=== PATIENT | female | born 1965 | race Caucasian/White ===

== ENCOUNTER 2020-04-30 19:27 | Emergency (ER) | payer OTHER, SELFPAY ==
--- NOTE | ~2020-04-30 | XR_ITS ---
EXAMINATION: XR chest 2V EXAM DATE: 04/30/2020 20:01 INDICATION: Nonproductive cough. TECHNIQUE: Frontal and lateral projections of the chest obtained and reviewed. Comparison is made to prior examination from 02/01/2014. FINDINGS: The lungs are clear. There are no pleural effusions. The cardiomediastinal silhouette is within normal limits. There is no pneumothorax suspected. The bones and soft tissues are unremarkab le. IMPRESSION: Unremarkable chest x-ray exam. Reviewed, dictated and finalized at location A.
[2020-04-30 19:49] VITALS: BP 156/96; PULSE 104; RESP 16; TEMP 36; O2SAT 98
--- NOTE | 2020-04-30 20:03 | ED.GENADULT ---
HPI - General Adult General Chief complaint: Upper Respiratory Infection Stated complaint: cough/headache/congestion Time Seen by Provider: 04/30/20 19:50 Source: patient and RN notes reviewed Mode of arrival: ambulatory Limitations: no limitations History of Present Illness HPI narrative: 54-year-old female presents with complains of upper respiratory infection, dry cough, sneezing, facial congestion, facial pressure, and intermittent headache (not the worst of her life) for the past 21 days. Doris reports symptoms increased daily, with increasing shortness of breath, facial pressure, and congestion over the past week. Vanessa-Albuterol inhaler, [place] cold, and Flonase without relief. History of Asthma. Dry cough with chest congestion. Rhinorrhea and nasal congestion. No high fevers, drooling, neck or throat swelling. No chest pain or wheezing. No exacerbation factors. Denies nausea, vomiting, and abdominal pain. Tolerating liquids well. LMP endometrial ablation. Remains active. The patient reports she received a Negative COVID-19 test on 04/29/2020. The patient reports she have not been diagnosed with COVID-19. The patient reports she is not waiting for the results of a COVID-19 lab test. The patient reports she do not have chills, weakness, or fatigue. The patient reports she do not have any sore throat, loss of taste or smell, and diarrhea. Denies recent traveling. Denies concerns for COVID-19 or exposures been home with limited outdoor exposure except for essential household needs, work, and return home. At this time, patient is not suspected of having COVID-19. Some parts of this dictation were generated by voice recognition software and may contain typographical and/or grammatical inaccuracies. Related Data Home Medications Medication Instructions Recorded Confirmed albuterol sulfate [ProAir HFA] 2 puff INHALATION Q4H PRN 04/30/20 04/30/20 nitroglycerin 0.4 mg SUBLINGUAL .PRN 04/30/20 04/30/20 rosuvastatin 20 mg PO DAILY 04/30/20 04/30/20 Allergies Allergy/AdvReac Type Severity Reaction Status Date / Time aspirin Allergy Mild Abdominal Verified 04/30/20 20:04 Pain codeine Allergy Mild Other Verified 04/30/20 20:04 meperidine Allergy Mild Unknown Verified 04/30/20 20:04 Sulfa (Sulfonamide Allergy Mild Unknown Verified 04/30/20 20:04 Antibiotics) influenza virus vaccine, Allergy Unknown Unknown Verified 04/30/20 20:04 specific latex Allergy Unknown Itching Verified 05/20/17 19:59 acetaminophen AdvReac Unknown Abdominal Unverified 04/30/20 20:04 Pain HYDROCODONE BIT Allergy Unknown nausea, Uncoded 05/20/17 19:59 vomiting and headache PROPOXYPHENE NAPSYLATE Allergy Unknown Unknown Uncoded 04/30/20 20:04 Review of Systems Review of Systems: Narrative: CONSTITUTIONAL: Denies fever, chills, sweats. EYES: Denies visual changes, redness, discharge. ENT: Complains of rhinorrhea, congestion, facial pressure, facial congestion. Denies sore throat, otalgia. CARDIOVASCULAR: Denies chest pain, palpitations, edema. RESPIRATORY: Denies wheezing. Complains of intermittent dyspnea, cough. GASTROINTESTINAL: Denies abdominal pain, nausea, vomiting, diarrhea. GENITOURINARY: Denies dysuria, hematuria, abnormal discharge. SKIN: Denies rash or itching. MUSCULOSKELETAL: Denies acute back pain, joint pain, or myalgia. NEUROLOGIC: Denies numbness or focal weakness. Complains of PIPER. PSYCHIATRIC: Denies anxiety or depression. All systems reviewed & are unremarkable except as noted in HPI and below. [facility] Past Medical History Medical History (Updated 05/01/20 @ 00:00 by Tho Mace) Asthma Hypercholesteremia Surgical History Surgical History (Updated 04/30/20 @ 20:07 by MARIO Marshall) History of dilation of urethra History of endometrial ablation Family History Family History (Updated 04/30/20 @ 20:35 by MARIO Marshall) Father , Related to COV
== END 2020-04-30 20:40 | disposition home or self-care (01) ==
PROVIDERS: Emergency Provider Nurse Practitioner Family; PCP Family Medicine
DX: J45.901 Unspecified asthma with (acute) exacerbation (principal); J32.9 Chronic sinusitis, unspecified; E78.00 Pure hypercholesterolemia, unspecified
CPT/HCPCS: 71046; 99213; G0463

== ENCOUNTER 2021-06-10 16:59 | Emergency (ER) | payer OTHER, SELFPAY ==
[2021-06-10 17:06] VITALS: BP 138/83; PULSE 96; RESP 16; TEMP 36.2; O2SAT 99
--- NOTE | 2021-06-10 17:07 | ED.FEMALEGU ---
HPI - Female Genitourinary General Chief complaint: Urogenital-Female Stated complaint: back pain/burning abd pain Time Seen by Provider: 06/10/21 17:09 Source: patient and RN notes reviewed History of Present Illness HPI Narrative: Patient is a 55-year-old female who presents the urgent care with complaints of a possible UTI. Patient states that she has a history of UTIs due to urethral surgery when she was younger. Patient states she is also had a history of kidney stones. Patient denies of any known blood in the urine. States that she has had some mild burning sensation to the lower suprapubic region. Also reports of urinary frequency and urgency. Patient states that she took a home test which let up for a UTI indicating leukocytes . Patient states that she has been taking ibuprofen. Denies of any vomiting or fever. No other acute complaints. As noted. She is aware of the plan of care. Some parts of this dictation were generated by voice recognition software and may contain typographical and/or grammatical inaccuracies. Related Data Home Medications Medication Instructions Recorded Confirmed albuterol sulfate [ProAir HFA] 2 puff INHALATION Q4H PRN 04/30/20 04/30/20 nitroglycerin 0.4 mg SUBLINGUAL .PRN 04/30/20 04/30/20 rosuvastatin 20 mg PO DAILY 04/30/20 04/30/20 Allergies Allergy/AdvReac Type Severity Reaction Status Date / Time aspirin Allergy Mild Abdominal Verified 04/30/20 20:04 Pain codeine Allergy Mild Other Verified 04/30/20 20:04 meperidine Allergy Mild Unknown Verified 04/30/20 20:04 Sulfa (Sulfonamide Allergy Mild Unknown Verified 04/30/20 20:04 Antibiotics) influenza virus vaccine, Allergy Unknown Unknown Verified 04/30/20 20:04 specific latex Allergy Unknown Itching Verified 05/20/17 19:59 acetaminophen AdvReac Unknown Abdominal Unverified 04/30/20 20:04 Pain HYDROCODONE BIT Allergy Unknown nausea, Uncoded 05/20/17 19:59 vomiting and headache PROPOXYPHENE NAPSYLATE Allergy Unknown Unknown Uncoded 04/30/20 20:04 Review of Systems Review of Systems: CONSTITUTIONAL: Denies fever, chills, or sweats. EYES: Denies visual changes, redness, or discharge. ENT: Denies rhinorrhea, congestion, sore throat, or otalgia. CARDIOVASCULAR: Denies chest pain, palpitations, or edema. RESPIRATORY: Denies cough or dyspnea. GASTROINTESTINAL: Denies abdominal pain, nausea, vomiting, or diarrhea. GENITOURINARY: Reports of urinary frequency, urgency SKIN: Denies rash or itching. MUSCULOSKELETAL: Active low back pain NEUROLOGIC: Denies headache, numbness, or weakness. All other systems reviewed are negative, except as documented in HPI. [facility] Past Medical History Medical History (Updated 06/10/21 @ 17:35 by MARIO Barnes) Asthma Hypercholesteremia Surgical History Surgical History (Updated 04/30/20 @ 20:07 by MARIO Marshall) History of dilation of urethra History of endometrial ablation Family History Family History (Updated 04/30/20 @ 20:35 by MARIO Marshall) Father , Related to COVID-19 Cerebrovascular accident Pneumonia Mother Alive and well Social History Social History (Updated 04/30/20 @ 20:36 by MARIO Marshall) Smoking status: Never smoker Tobacco type: cigarettes Second hand tobacco smoke exposure: No Alcohol intake: current Substance use: never Substance use type: does not use Gender identity (if verbalized by the patient): Female Sexual Orientation (if Verbalized by the Patient): Straight or Heterosexual Comments At the time of my signature, I reviewed and agree with the nursing past medical, surgical, social, and family history. There is no relevant family history pertinent to the patient complaint. Exam Narrative: GENERAL: This is a well-nourished, well-developed patient, in no apparent distress. HEAD: normocephalic, atraumatic. EYES: PERRL. Sclera clear/white. Vision is grossly in
== END 2021-06-10 17:42 | disposition home or self-care (01) ==
PROVIDERS: Emergency Provider Nurse Practitioner Family; PCP Family Medicine
DX: R35.0 Frequency of micturition (principal); Z87.442 Personal history of urinary calculi
CPT/HCPCS: 81003; 99213; G0463

== ENCOUNTER 2021-11-09 18:25 | Emergency (ER) | payer OTHER, SELFPAY ==
--- NOTE | 2021-11-09 18:33 | ED.EAR ---
HPI - Ear Problem General Chief complaint: Ear Stated complaint: Left Ear Irritation Time Seen by Provider: 11/09/21 18:34 Source: patient, RN notes reviewed and old records reviewed Mode of arrival: ambulatory Limitations: no limitations History of Present Illness HPI Narrative: 55-year-old female presents to the [facility] with complaints of left ear pressure and pain. Patient states it has started back in August. States she started physical therapy due to vertigo issues. Has seen her primary care for this. States she does take Zyrtec occasionally and using some type of nasal spray. Has also tried Sudafed Related Data Allergies Allergy/AdvReac Type Severity Reaction Status Date / Time aspirin Allergy Mild Abdominal Verified 11/09/21 18:30 Pain codeine Allergy Mild Other Verified 11/09/21 18:30 meperidine Allergy Mild Unknown Verified 11/09/21 18:30 Sulfa (Sulfonamide Allergy Mild Unknown Verified 11/09/21 18:30 Antibiotics) influenza virus vaccine, Allergy Unknown Unknown Verified 11/09/21 18:30 specific latex Allergy Unknown Itching Verified 11/09/21 18:30 acetaminophen AdvReac Unknown Abdominal Verified 11/09/21 18:30 Pain HYDROCODONE BIT Allergy Unknown nausea, Uncoded 11/09/21 18:30 vomiting and headache PROPOXYPHENE NAPSYLATE Allergy Unknown Unknown Uncoded 11/09/21 18:30 Review of Systems Review of Systems: All systems reviewed & are unremarkable except as noted in HPI and below Constitutional: Constitutional: Reports no additional constitutional complaints, Denies chills and Denies fever(s) Eyes: Eyes: Reports no additional eye complaints ENT: Reports as per HPI and Reports otalgia (Left) Cardiovascular: Cardiovascular: Reports no additional cardiovascular complaints Respiratory: Respiratory: Reports no additional respiratory complaints Gastrointestinal: Gastrointestinal: Reports no additional gastrointestinal complaints Musculoskeletal: Musculoskeletal: Reports no additional musculoskeletal complaints Integumentary/Breasts: Skin/Breast: Reports system reviewed and no additional complaints, except as docu Neurologic: Reports system reviewed and no additional complaints, except as documented Psychiatric: Psychiatric: Reports no additional psychiatric complaints Allergic/Immunologic: Allergic/Immunologic: Reports no additional allergic/immunologic complaints PMFSH Past Medical History Medical History (Updated 11/09/21 @ 19:19 by Rosaura Suggs, BERNIEC) Asthma Hypercholesteremia Surgical History Surgical History History of dilation of urethra History of endometrial ablation Family History Family History Father , Related to COVID-19 Cerebrovascular accident Pneumonia Mother Alive and well Social History Social History Smoking status: Never smoker Tobacco type: cigarettes Second hand tobacco smoke exposure: No Alcohol intake: current Substance use: never Substance use type: does not use Gender identity (if verbalized by the patient): Female Sexual Orientation (if Verbalized by the Patient): Straight or Heterosexual Comments At the time of my signature, I reviewed and agree with the nursing past medical, surgical, social, and family history. There is no relevant family history pertinent to the patient complaint. Exam Const: General: healthy appearing, no acute distress, alert and well nourished Nutritional Appearance: well nourished Orientation/consciousness: patient oriented x3 Limitations: no limitations HENMT: Head: normal to inspection Ears: external ears normal, EAC's normal and TM abnormal bulging on the left and wth effusion serous bilateral (left greater then right); not erythematous Face/Nose/Sinus: Normal external nose present and Normal nares present Fac
[2021-11-09 18:34] VITALS: BP 154/96; PULSE 99; RESP 16; TEMP 36.4; O2SAT 100
== END 2021-11-09 18:54 | disposition home or self-care (01) ==
PROVIDERS: Emergency Provider Nurse Practitioner; PCP Physician Assistant
DX: H65.02 Acute serous otitis media, left ear (principal); J45.909 Unspecified asthma, uncomplicated; E78.00 Pure hypercholesterolemia, unspecified
CPT/HCPCS: 99213; G0463

== ENCOUNTER 2022-01-19 16:25 | Emergency (ER) | payer BC, SELFPAY ==
[2022-01-19 16:40] VITALS: BP 121/90; PULSE 95; RESP 12; TEMP 36.2; O2SAT 100
--- NOTE | 2022-01-19 17:25 | ED.URI ---
HPI - URI/Sore Throat General Chief Complaint: Upper Respiratory Infection Stated Complaint: uri Time Seen by Provider: 01/19/22 17:26 Source: patient, RN notes reviewed and old records reviewed Mode of arrival: ambulatory Limitations: no limitations History of Present Illness HPI Narrative: 56-year-old female presents to the [facility] with complaints of an upper respiratory issue. Symptoms started around the 18 of December may be able after. Several days later took a COVID test at home which was positive. Quarantine for several days. States she has had this sinus congestion, postnasal drip, ear discomfort, cough since then and just can not shake it. Has tried multiple [id number] products with no relief. Related Data Allergies Allergy/AdvReac Type Severity Reaction Status Date / Time aspirin Allergy Mild Abdominal Verified 01/19/22 16:38 Pain codeine Allergy Mild Other Verified 01/19/22 16:38 meperidine Allergy Mild Unknown Verified 01/19/22 16:38 Sulfa (Sulfonamide Allergy Mild Unknown Verified 01/19/22 16:38 Antibiotics) influenza virus vaccine, Allergy Unknown Unknown Verified 01/19/22 16:38 specific latex Allergy Unknown Itching Verified 01/19/22 16:38 acetaminophen AdvReac Unknown Abdominal Verified 01/19/22 16:38 Pain HYDROCODONE BIT Allergy Unknown nausea, Uncoded 01/19/22 16:38 vomiting and headache PROPOXYPHENE NAPSYLATE Allergy Unknown Unknown Uncoded 01/19/22 16:38 Review of Systems Review of Systems: All systems reviewed & are unremarkable except as noted in HPI and below Constitutional: Constitutional: Reports no additional constitutional complaints Eyes: Eyes: Reports no additional eye complaints ENT: Reports as per HPI Cardiovascular: Cardiovascular: Reports no additional cardiovascular complaints, Denies chest pain and Denies dyspnea Respiratory: Respiratory: Reports no additional respiratory complaints, Denies chest congestion, Denies cough and Denies dyspnea Gastrointestinal: Gastrointestinal: Reports no additional gastrointestinal complaints, Denies abdominal pain, Denies nausea and Denies vomiting Musculoskeletal: Musculoskeletal: Reports no additional musculoskeletal complaints Integumentary/Breasts: Skin/Breast: Reports system reviewed and no additional complaints, except as docu Neurologic: Reports system reviewed and no additional complaints, except as documented Psychiatric: Psychiatric: Reports no additional psychiatric complaints Allergic/Immunologic: Allergic/Immunologic: Reports no additional allergic/immunologic complaints PMFSH Past Medical History Medical History Asthma Hypercholesteremia Surgical History Surgical History History of dilation of urethra History of endometrial ablation Family History Family History Father , Related to COVID-19 Cerebrovascular accident Pneumonia Mother Alive and well Social History Social History Smoking status: Never smoker Tobacco type: cigarettes Second hand tobacco smoke exposure: No Alcohol intake: current Substance use: never Substance use type: does not use Gender identity (if verbalized by the patient): Female Sexual Orientation (if Verbalized by the Patient): Straight or Heterosexual Comments At the time of my signature, I reviewed and agree with the nursing past medical, surgical, social, and family history. There is no relevant family history pertinent to the patient complaint. Exam Const: General: cooperative, healthy appearing, comfortable, no acute distress, well developed, alert and well nourished Nutritional Appearance: well nourished Orientation/consciousness: patient oriented x3 Limitations: no limitations HENMT: Head: normal
== END 2022-01-19 17:45 | disposition home or self-care (01) ==
PROVIDERS: Emergency Provider Nurse Practitioner; PCP Physician Assistant
DX: J32.9 Chronic sinusitis, unspecified (principal); J40 Bronchitis, not specified as acute or chronic; J45.909 Unspecified asthma, uncomplicated; E78.00 Pure hypercholesterolemia, unspecified
CPT/HCPCS: 99213; G0463

== ENCOUNTER 2022-03-23 15:28 | Emergency (ER) | payer BC, SELFPAY ==
--- NOTE | 2022-03-23 15:35 | ED.URI ---
HPI - URI/Sore Throat General Chief Complaint: Upper Respiratory Infection Stated Complaint: Sinus/Chest Source: patient and RN notes reviewed Mode of arrival: ambulatory Limitations: no limitations History of Present Illness HPI Narrative: 56 y/o female presented for c/o cough, chest congestion and nasal congestion worsening over the last 10 days. States she started feeling worse yesterday. Endorses an episode of left rib pain with deep breath and states she had wheezing last night while laying down. Patient had covid in December. Denies sob, n/v/d/f/c. Denies sick contacts. MD elicited complaint: cough Related Data Allergies Allergy/AdvReac Type Severity Reaction Status Date / Time aspirin Allergy Mild Abdominal Verified 03/23/22 15:39 Pain codeine Allergy Mild Other Verified 03/23/22 15:39 meperidine Allergy Mild Unknown Verified 03/23/22 15:39 Sulfa (Sulfonamide Allergy Mild Unknown Verified 03/23/22 15:39 Antibiotics) influenza virus vaccine, Allergy Unknown Unknown Verified 03/23/22 15:39 specific latex Allergy Unknown Itching Verified 03/23/22 15:39 doxycycline Allergy Headache Verified 03/23/22 15:59 acetaminophen AdvReac Unknown Abdominal Verified 03/23/22 15:39 Pain HYDROCODONE BIT Allergy Unknown nausea, Uncoded 03/23/22 15:39 vomiting and headache PROPOXYPHENE NAPSYLATE Allergy Unknown Unknown Uncoded 03/23/22 15:39 Review of Systems Review of Systems: per hPI [facility] Past Medical History Medical History Asthma Hypercholesteremia Surgical History Surgical History History of dilation of urethra History of endometrial ablation Family History Family History Father , Related to COVID-19 Cerebrovascular accident Pneumonia Mother Alive and well Social History Social History Smoking status: Never smoker Tobacco type: cigarettes Second hand tobacco smoke exposure: No Alcohol intake: current Substance use: never Substance use type: does not use Living arrangements: with family Occupation/Education: occupation Gender identity (if verbalized by the patient): Female Sexual Orientation (if Verbalized by the Patient): Straight or Heterosexual Exam Narrative: GENERAL: Ill-appearing, nontoxic EYES: PERRLA, conjunctivae clear ENT: Mucous membranes moist. TM pearly bowman with dull light reflex bilaterally; no tragal tenderness. Oropharynx erythematous without lesions or exudate NECK: Supple. No lymphadenopathy CHEST: Clear to auscultation, breath sounds equal. No wheezing, rhonchi, rales, or stridor. No respiratory distress, speaks in full sentences. HEART: Regular rate and rhythm. No murmur heard. SKIN: Warm, dry, no rash. LUE congenital abnormality NEURO: Alert and oriented x3. PSYCH: Normal mood and affect Course Course Emergency Course: Patient is aware of diagnosis, understands and agrees to treatment plan. Anticipatory guidance given. Patient agrees to follow-up as directed and is aware of reasons to seek care at the emergency department. Portions of this record may have been created with voice recognition software Level of Care: Express Care Visit Vital Signs Vital signs: reviewed MDM - URI/Sore Throat MDM Narrative Medical decision making narrative: Advised supportive measures and signs/symptoms to go to the ER. Patient refused doxycycline, states she gets a headache. She states she tolerates azithromycin. Pt is appropriate for outpt treatment and f/u. Differential Diagnosis Differential diagnosis: Likely upper respiratory infection, sinusitis, viral infection and bronchitis Discharge Plan Discharge Clinical Impression: Upper respiratory infection Qualifiers: URI type: unspecified URI Qualifie
[2022-03-23 15:38] VITALS: BP 134/92; PULSE 90; RESP 14; TEMP 36.3; O2SAT 100
[2022-03-23 15:40] VITALS: BP 134/92; PULSE 90; RESP 14; TEMP 36.3; O2SAT 100
== END 2022-03-23 15:58 | disposition home or self-care (01) ==
PROVIDERS: Emergency Provider Nurse Practitioner Family; PCP Physician Assistant
DX: J06.9 Acute upper respiratory infection, unspecified (principal); J45.909 Unspecified asthma, uncomplicated; E78.00 Pure hypercholesterolemia, unspecified
CPT/HCPCS: 99213; G0463

== ENCOUNTER 2022-03-30 13:21 | Outpatient (CLI) | payer BC, SELFPAY ==
--- NOTE | ~2022-03-30 | US_ITS ---
EXAMINATION: US pelvic complete w TV DATE: 03/30/2022 14:31 INDICATION: Uterine fibroids. Comparison:Ultrasound dated 10/24/2013 TECHNIQUE: Multiple transabdominal and endovaginal sonographic images of the pelvis performed. FINDINGS: The uterus measures 12.9 x 6.6 x 10.2 cm. There are uterine fibroids, largest measuring 8.3 x 6.2 x 6.3 cm. The endometrium is not well delineated due to fibroid changes. The right ovary measures 4.2 x 3 x 3.2 cm and the left ovary measures 2.3 x 1.6 x 1.4 cm. There are small follicles in each ovary. Normal doppler signal in both ovaries. There is no free fluid in the pelvis. There are no abnormal masses seen on either side. IMPRESSION: 1. Enlarged fibroid uterus with largest discrete fibroid measuring 8.3 cm. Reviewed, dictated and finalized at location L. BLE LINEMAN
== END 2022-03-30 13:22 | disposition home or self-care (01) ==
PROVIDERS: PCP Physician Assistant; Visit Provider Physician Assistant
DX: D25.9 Leiomyoma of uterus, unspecified (principal)
CPT/HCPCS: 76830; 76856

== ENCOUNTER 2022-05-04 17:49 | Outpatient (CLI) | payer BC, SELFPAY ==
--- NOTE | ~2022-05-04 | MM_ITS ---
EXAMINATION: MM screening nicole BI w shirley HISTORY: Screening TECHNIQUE: Craniocaudal and mediolateral oblique 3-D tomosynthesis images were obtained and synthetic 2-D images were generated. CAD analysis was submitted and interpreted. COMPARISON: Comparison to multiple prior studies sequentially, with oldest reviewed study dated 09/28. BREAST PARENCHYMAL COMPOSITION: The breasts are extremely dense, which lowers the sensitivity of mamm ography FINDINGS: There is new focal asymmetry superiorly in the left breast on MLO view. Right breast is sta ble without evidence for malignancy. IMPRESSION: 1. New focal left breast asymmetry upper aspect of the left breast on MLO view. 2. Additional mammographic views and possible breast ultrasound are recommended. BI-RADS Category 0: Incomplete: Needs additional imaging evaluation. Reviewed, dictated and finalized at location A. IMPRESSION: 1. New focal left breast asymmetry upper aspect of the left breast on MLO view. 2. Additional mammographic views and possible breast ultrasound are recommended . BI-RADS Category 0: Incomplete: Needs additional imaging evaluation.
== END 2022-05-04 17:50 | disposition home or self-care (01) ==
LOC: ANHIMG 17:52
PROVIDERS: PCP Physician Assistant; Visit Provider Physician Assistant
DX: Z12.31 Encounter for screening mammogram for malignant neoplasm of breast (principal); R92.8 Other abnormal and inconclusive findings on diagnostic imaging of breast
CPT/HCPCS: 77063; 77067